=== PATIENT | female | born 2000 | race Caucasian/White ===

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

== ENCOUNTER 2021-01-10 05:52 | Emergency (ER) | payer BC, OTHER ==
[~2021-01-10] VITALS: Ht 167.6 cm; Wt 102.5 kg
[2021-01-10 06:00] VITALS: BP 132/61
[2021-01-10] MEDS ORDERED: CONTRAST GIVEN. MC PRN (06:45)
[2021-01-10 06:54] LABS: BACTERIA,URINE MOD /HPF (0-FEW); BILIRUBIN,URINE NEG (NEG); CLARITY,URINE CLEAR; COLOR,URINE YELLOW; GLUCOSE,URINE NEG (NEG); NITRITE,URINE NEG (NEG); SQUAMOUS EPITHELIAL CELL,UR MANY /LPF; UROBILINOGEN,URINE 0.2 mg/dL (0.2 mg/dL)
[2021-01-10] MEDS ORDERED: IOHEXOL 300 MG/ML 75 ML VIAL. IV ONE (07:00)
[2021-01-10] MEDS ORDERED: KETOROLAC 15 MG/ML VIAL. IVP ONE (07:00)
--- NOTE | 2021-01-10 07:02 | PHYS DOC ---
Past History Past Medical History: No Pertinent History, Depression Past Surgical History: Other Additional Past Surgical Histo: adenoids, tonsils, wisdom teeth Smoking: Non-smoker Alcohol Use: None Drug Use: None General Adult EDM: Chief Complaint: ABDOMINAL PAIN HPI: HPI: Patient is a 89-year-old female coming in for right lower abdominal pain. Patient states that she had some stomach discomfort yesterday before going to bed but woke up at 0100 with "stabbing" intermittent pain in her right lower abdomen. Patient states the pain is worse with movement and pressure. Denies any nausea, vomiting, diarrhea or constipation. Denies any urinary discomfort or hematuria. No abdominal surgical history. Patient has a history significant for PCOS, and had a recent TV ultrasound that showed no cyst. Review of Systems: Review of Systems: Constitutional: Denies fever or chills Eyes: Denies change in visual acuity HENT: Denies nasal congestion or sore throat Respiratory: Denies cough or shortness of breath Cardiovascular: Denies chest pain or edema GI: Denies abdominal pain, nausea, vomiting, bloody stools or diarrhea : Denies dysuria Musculoskeletal: Denies back pain or joint pain Integument: Denies rash Neurologic: Denies headache, focal weakness or sensory changes Endocrine: Denies polyuria or polydipsia Lymphatic: Denies swollen glands Psychiatric: Denies depression or anxiety Current Medications: Current Meds: Current Medications Medications (Trade) Dose Ordered Sig/Denia Start Time Stop Time Status Last Admin Dose Admin Info (Do NOT chart on this entry -- for MONITORING) 1 each PRN DAILY PRN 01/10/21 06:45 01/12/21 06:44 Iohexol (Omnipaque 300 Mg/ml) 75 ml 1X ONCE 01/10/21 07:00 01/10/21 07:01 01/10/21 06:48 75 ML Ketorolac Tromethamine (Toradol 15mg Vial) 15 mg 1X ONCE 01/10/21 07:00 01/10/21 07:01 Allergies: Allergies: Allergies Coded Allergies Type Severity Reaction Last Updated Verified latex Allergy Unknown 11/28/20 Yes Physical Exam: PE: Constitutional: Well developed, well nourished, no acute distress, non-toxic appearance. [] HENT: Normocephalic, atraumatic, bilateral external ears normal, oropharynx moist, no oral exudates, nose normal. [] Eyes: PERRLA, EOMI, conjunctiva normal, no discharge. [] Neck: Normal range of motion, no tenderness, supple, no stridor. [] Cardiovascular:Heart rate regular rhythm, no murmur [] Lungs & Thorax: Bilateral breath sounds clear to auscultation [] Abdomen: Bowel sounds normal, soft, no tenderness, no masses, no pulsatile masses. [] Skin: Warm, dry, no erythema, no rash. [] Back: No tenderness, no CVA tenderness. [] Extremities: No tenderness, no cyanosis, no clubbing, ROM intact, no edema. [] Neurologic: Alert and oriented X 3, normal motor function, normal sensory function, no focal deficits noted. [] Psychologic: Affect normal, judgement normal, mood normal. [] Current Patient Data: Labs: Laboratory Tests Test 01/10/21 06:00 01/10/21 06:26 Urine Collection Type Unknown Urine Color Yellow Urine Clarity Clear Urine pH 6.0 Urine Specific Bradley >=1.030 Urine Protein Neg (NEG-TRACE) Urine Glucose (UA) Neg mg/dL (NEG) Urine Ketones (Stick) Neg mg/dL (NEG) Urine Blood Large (NEG) Urine Nitrite Neg (NEG) Urine Bilirubin Neg (NEG) Urine Urobilinogen Dipstick 0.2 mg/dL (0.2 mg/dL) Urine Leukocyte Esterase Neg (NEG) Urine RBC 11-20 /HPF (0-2) Urine WBC 1-4 /HPF (0-4) Urine Squamous Epithelial Cells Many /LPF Urine Bacteria Mod /HPF (0-FEW) Urine Mucus Mod /LPF POC Urine HCG, Qualitative hcg negative (Negative) EKG: EKG: [] Radiology/Procedures: Radiology/Procedures: [address] [address] IMAGING REPORT Signed PATIENT: SANDRA DODSON LACCOUNT: [id number] : 2000 LOCATION: ER AGE: 20 SEX: F EXAM STATUS: REG ER ORD. PHYSICIAN: EVELYN MCKNIGHT MD REASON: rlq pain PROCEDURE: CT ABD PELV W/ IV CONTRST ONLY Study: CT abdomen/pelvis with intravenous contrast Indication: Right lower quadrant pain. Comparison: 07/16/2017 Technique: Helical CT imaging performed of the abdomen and pelvis after the intravenous administration of contrast. Sagittal and coronal reformats were obtained. One or more of the following individualized dose reduction techniques were utilized for this examination: 1. Automated exposure control 2. Adjustment of the mA and/or kV according to patient size 3. Use of iterative reconstruction technique. Findings: The visualized lungs and mediastinal contents are within normal limits. Unremarkable liver, gallbladder, biliary tree, pancreas spleen and adrenal glands. Symmetric renal parenchymal enhancement. No stone or collecting system dilatation. Unremarkable bladder. The uterus and ovaries are within normal limits. No localized colonic wall thickening or pericolonic inflammation. The appendix is well-visualized and is normal with no periappendiceal inflammation and gas within the lumen. Nonobstructed small bowel. Unremarkable stomach. Normal aortic caliber. Patent major veins. No lymphadenopathy by size criteria. No free fluid or pneumoperitoneum. No acute or aggressive osseous process. Unchanged vertebral body height and alignment with a few Schmorl's nodes. Impression: No acute abnormality identified throughout the abdomen or pelvis. In the setting of reported right lower quadrant pain the appendix is normal. Electronically signed by: GEMA MCCLOUD MD (01/10/2021 7:19 AM) [facility] DICTATED AND SIGNED BY: GEMA MCCLOUD MD DATE: 01/10/21 0711 CC: EVELYN MCKNIGHT MD; TUNG HACKETT ~MTH0 0 [] Heart Score: C/O Chest Pain: No Risk Factors: Risk Factors: DM, Current or recent (<one month) smoker, HTN, HLP, family history of CAD, obesity. Risk Scores: Score 0 - 3: 2.5% MACE over next 6 weeks - Discharge Home Score 4 - 6: 20.3% MACE over next 6 weeks - Admit for Clinical Observation Score 7 - 10: 72.7% MACE over next 6 weeks - Early Invasive Strategies Course & Med Decision Making: Course & Med Decision Making Pertinent Labs and Imaging studies reviewed. (See chart for details) [] Dragon Disclaimer: Dragon Disclaimer: This electronic medical record was generated, in whole or in part, using a voice recognition dictation system. Departure Departure: Impression: Primary Impression: RLQ abdominal pain Disposition: 01 HOME / SELF CARE / HOMELESS Condition: STABLE Referrals: TUNG HACKETT (PCP) Patient Instructions: Abdominal Pain, Possible Early Appendicitis EVELYN MCKNIGHT MD Jan 10, 2021 07:02
--- NOTE | 2021-01-10 07:21 | RAD ---
Study: CT abdomen/pelvis with intravenous contrast Indication: Right lower quadrant pain. Comparison: 07/16/2017 Technique: Helical CT imaging performed of the abdomen and pelvis after the intravenous administratio n of contrast. Sagittal and coronal reformats were obtained. One or more of the following individualized dose reduction techniques were utilized for this examinat ion: 1. Automated exposure control 2. Adjustment of the mA and/or kV according to patient size 3. Use of iterative reconstruction technique. Findings: The visualized lungs and mediastinal contents are within normal limits. Unremarkable liver, gallbladder, biliary tree, pancreas spleen and adrenal glands. Symmetric renal parenchymal enhancement. No stone or collecting system dilatation. Unremarkable bladd er. The uterus and ovaries are within normal limits. No localized colonic wall thickening or pericolonic inflammation. The appendix is well-visualized and is normal with no periappendiceal inflammation and gas within the lumen. Nonobstructed small bowel. Unremarkable stomach. Normal aortic caliber. Patent major veins. No lymphadenopathy by size criteria. No free fluid or pneu moperitoneum. No acute or aggressive osseous process. Unchanged vertebral body height and alignment with a few Schm orl's nodes. Impression: No acute abnormality identified throughout the abdomen or pelvis. In the setting of reported right lo wer quadrant pain the appendix is normal. Electronically signed by: GEMA MCCLOUD MD (01/10/2021 7:19 AM) [facility]
[2021-01-10 07:23] LABS: BASO % 1 % (0-3); EOS # 0.1 x10^3/uL (0.0-0.7); EOS % 2 % (0-3); HEMATOCRIT 35.7 % (36.0-47.0); LYMPH # 1.9 x10^3/uL (1.0-4.8); LYMPH % 35 % (24-48); MEAN CORPUSCULAR HEMOGLOBIN 27 pg (25-35); MEAN CORPUSCULAR HGB CONC 34 g/dL (31-37); MEAN CORPUSCULAR VOLUME 79 fL (79-100); MONO # 0.6 x10^3/uL (0.0-1.1); MONO % 11 % (0-9); NEUT # 2.7 x10^3uL (1.8-7.7); NEUT % 52 % (31-73); PLATELET COUNT 236 x10^3/uL (140-400); RED BLOOD COUNT 4.53 x10^6/uL (3.50-5.40); RED CELL DISTRIBUTION WIDTH 14.5 % (11.5-14.5); WHITE BLOOD COUNT 5.3 x10^3/uL (4.0-11.0)
[2021-01-10 07:25] LABS: CALCIUM 8.2 mg/dL (8.5-10.1); CREATININE 0.6 mg/dL (0.6-1.0); GFR 128.8; POTASSIUM 4.2 mmol/L (3.5-5.1)
[2021-01-10 07:31] LABS: ALBUMIN 3.2 g/dL (3.4-5.0); TOTAL BILIRUBIN 0.2 mg/dL (0.2-1.0); TOTAL PROTEIN 6.3 g/dL (6.4-8.2)
== END 2021-01-10 07:51 | disposition home or self-care (01) ==
LOC: ER 05:52
DX: R10.31 Right lower quadrant pain (principal); Z91.040 Latex allergy status
CPT/HCPCS: 36415; 74177; 80053; 81001; 81025; 83690; 85025; 87086; 96374; 99285; J1885; Q9967

== ENCOUNTER 2021-03-06 11:44 | Emergency (ER) | payer OTHER ==
[~2021-03-06] VITALS: Ht 167.6 cm; Wt 102.5 kg
[2021-03-06 12:06] VITALS: BP 148/95
[2021-03-06] MEDS ORDERED: IV NORMAL SALINE 1,000ML 1,000 ML IV ONE (12:45)
--- NOTE | 2021-03-06 12:51 | PHYS DOC ---
Past History Past Medical History: No Pertinent History, Depression Past Surgical History: Other Additional Past Surgical Histo: adenoids, tonsils, wisdom teeth Smoking: Non-smoker Alcohol Use: None Drug Use: None General Adult EDM: Chief Complaint: VAGINAL BLEEDING HPI: HPI: 20-year-old female presents with vaginal bleeding. The patient started Depo- Provera in December. Her last menstrual cycle was in December. She has been having bleeding for more than a week and it seems like the clots have gotten bigger. Some of them has been as big as a golf ball. She has never had significant cramps or clotting with her menstrual cycle. She denies fever or chills. She has had some mild lightheadedness. Review of Systems: Review of Systems: Constitutional: Denies fever or chills Eyes: Denies change in visual acuity HENT: Denies nasal congestion or sore throat Respiratory: Denies cough or shortness of breath Cardiovascular: Denies chest pain or edema GI: Lower abdominal pain. Denies nausea, vomiting, bloody stools or diarrhea : Vaginal bleeding Musculoskeletal: Denies back pain or joint pain Integument: Denies rash Neurologic: Denies headache, focal weakness or sensory changes Endocrine: Denies polyuria or polydipsia Lymphatic: Denies swollen glands Psychiatric: Denies depression or anxiety Current Medications: Current Meds: Current Medications Medications (Trade) Dose Ordered Sig/Denia Start Time Stop Time Status Last Admin Dose Admin Sodium Chloride 1,000 ml @ 1,000 mls/hr 1X ONCE 03/06/21 12:45 03/06/21 13:44 UNV Allergies: Allergies: Allergies Coded Allergies Type Severity Reaction Last Updated Verified latex Allergy Unknown 11/28/20 Yes Physical Exam: PE: Constitutional: Well developed, well nourished, obese, no acute distress, non- toxic appearance. [] HENT: Normocephalic, atraumatic, bilateral external ears normal, oropharynx moist, no oral exudates, nose normal. [] Eyes: PERRLA, EOMI, conjunctiva normal, no discharge. [] Neck: Normal range of motion, no tenderness, supple, no stridor. [] Cardiovascular: Heart rate regular rhythm, no murmur [] Lungs & Thorax: Bilateral breath sounds clear to auscultation [] Abdomen: Bowel sounds normal, soft, no tenderness, no masses, no pulsatile masses. [] Skin: Warm, dry, no erythema, no rash. [] Back: No tenderness, no CVA tenderness. [] Extremities: No tenderness, no cyanosis, no clubbing, ROM intact, no edema. [] Neurologic: Alert and oriented X 3, normal motor function, normal sensory function, no focal deficits noted. [] Psychologic: Affect normal, judgement normal, mood normal. [] EKG: EKG: [] Radiology/Procedures: Radiology/Procedures: [] Heart Score: C/O Chest Pain: N/A Risk Factors: Risk Factors: DM, Current or recent (<one month) smoker, HTN, HLP, family history of CAD, obesity. Risk Scores: Score 0 - 3: 2.5% MACE over next 6 weeks - Discharge Home Score 4 - 6: 20.3% MACE over next 6 weeks - Admit for Clinical Observation Score 7 - 10: 72.7% MACE over next 6 weeks - Early Invasive Strategies Course & Med Decision Making: Course & Med Decision Making Pertinent Labs and Imaging studies reviewed. (See chart for details) The patient's labs are unremarkable. Her hemoglobin is 11.9. I advised the patient that this is likely due to restarting the control. She does not meet criteria for admission or transfusion. This should resolve on its own. She can follow-up with her primary care physician or [facility] if the bleeding does not stop in the next few days. Urinalysis is negative for infection. She is not . She is stable for discharge at this time. [] Dragon Disclaimer: Mookie Disclaimer: This electronic medical record was generated, in whole or in part, using a voice recognition dictation system. Departure Departure: Impression: Primary Impression: Menorrhagia Qualified Codes: N92.1 - Excessive and frequent menstruation with irregular cycle Disposition: HOME / SELF CARE / HOMELESS Condition: STABLE Referrals: TUNG HACKETT (PCP) Patient Instructions: Menorrhagia, [id number] MERARI HOLMAN DO Mar 06, 2021 12:51
[2021-03-06 13:44] LABS: BASO # 0.1 x10^3/uL (0.0-0.2); BASO % 1 % (0-3); EOS % 0 % (0-3); HEMATOCRIT 33.7 % (36.0-47.0); HEMOGLOBIN 11.2 g/dL (12.0-15.5); LYMPH # 2.3 x10^3/uL (1.0-4.8); LYMPH % 35 % (24-48); MEAN CORPUSCULAR HEMOGLOBIN 26 pg (25-35); MEAN CORPUSCULAR HGB CONC 33 g/dL (31-37); MEAN CORPUSCULAR VOLUME 79 fL (79-100); MONO # 0.5 x10^3/uL (0.0-1.1); MONO % 8 % (0-9); NEUT # 3.6 x10^3uL (1.8-7.7); NEUT % 55 % (31-73); PLATELET COUNT 293 x10^3/uL (140-400); RED BLOOD COUNT 4.28 x10^6/uL (3.50-5.40); RED CELL DISTRIBUTION WIDTH 13.7 % (11.5-14.5); WHITE BLOOD COUNT 6.6 x10^3/uL (4.0-11.0)
[2021-03-06 13:46] LABS: CALCIUM 9.4 mg/dL (8.5-10.1); CREATININE 0.6 mg/dL (0.6-1.0); GFR 128.8; POTASSIUM 4.2 mmol/L (3.5-5.1)
[2021-03-06 13:51] LABS: ALBUMIN/GLOBULIN RATIO 1.1 (1.0-1.7); TOTAL BILIRUBIN 0.2 mg/dL (0.2-1.0); TOTAL PROTEIN 7.5 g/dL (6.4-8.2)
[2021-03-06 14:56] LABS: BACTERIA,URINE 0 /HPF (0-FEW); BILIRUBIN,URINE NEG (NEG); CLARITY,URINE CLOUDY; COLOR,URINE YELLOW; GLUCOSE,URINE NEG (NEG); NITRITE,URINE NEG (NEG); RBC,URINE >40 /HPF (0-2); SQUAMOUS EPITHELIAL CELL,UR FEW /LPF; UROBILINOGEN,URINE 0.2 mg/dL (0.2 mg/dL); WBC,URINE 0 /HPF (0-4)
== END 2021-03-06 15:40 | disposition home or self-care (01) ==
LOC: ER 11:44
DX: N92.1 Excessive and frequent menstruation with irregular cycle (principal); Z91.040 Latex allergy status
CPT/HCPCS: 36415; 80053; 81001; 81025; 85025; 96360; 99283; J7030

== ENCOUNTER → 2021-03-10 | Outpatient (CLI) | payer OTHER ==
[2021-03-06 12:06] VITALS: BP 148/95
--- NOTE | 2021-03-10 17:52 | RAD ---
Study: XR SHOULDER_LEFT 2+ VIEWS Indication: Left shoulder pain. Comparison: None. Findings: Alignment is anatomic. No acute fracture. No significant arthrosis. The partially assessed left-sided ribs are grossly intact. Unremarkable soft tissues. Within normal limits acromiohumeral interval. Impression: No acute fracture or malalignment. Electronically signed by: GEMA MCCLOUD MD (03/10/2021 5:49 PM) [facility]
== END ==
LOC: RAD 17:16
PROVIDERS: ATTEND Nurse Practitioner Family
DX: M25.512 Pain in left shoulder (principal)
CPT/HCPCS: 73030

== ENCOUNTER 2021-04-25 08:06 | Emergency (ER) | payer OTHER ==
[~2021-04-25] VITALS: Ht 167.6 cm; Wt 108.9 kg
[2021-04-25 08:23] VITALS: BP 135/83
--- NOTE | 2021-04-25 08:27 | PHYS DOC ---
Past History Past Medical History: No Pertinent History, Depression Past Surgical History: Other Additional Past Surgical Histo: adenoids, tonsils, wisdom teeth Smoking: Non-smoker Alcohol Use: None Drug Use: None General Adult EDM: Chief Complaint: COUGH HPI: HPI: 21-year-old female presents with single episode of hemoptysis. Patient woke up at 3 AM to go to the restroom. She had a tickle in her throat and started to cough. She coughed up a green massive blood around 1 inch in diameter. She did not have any further bleeding. She has been feeling completely normal. She denies any symptoms of illness. She attempted to go to urgent care but they sent her to the ER. She just wants to make sure there is no significant problem. She denies shortness of breath, chest pain, dizziness. No fever or chills. Review of Systems: Review of Systems: Constitutional: Denies fever or chills Eyes: Denies change in visual acuity HENT: Denies nasal congestion or sore throat Respiratory: Hemoptysis Cardiovascular: Denies chest pain or edema GI: Denies abdominal pain, nausea, vomiting, bloody stools or diarrhea : Denies dysuria Musculoskeletal: Denies back pain or joint pain Integument: Denies rash Neurologic: Denies headache, focal weakness or sensory changes Endocrine: Denies polyuria or polydipsia Lymphatic: Denies swollen glands Psychiatric: Denies depression or anxiety Allergies: Allergies: Allergies Coded Allergies Type Severity Reaction Last Updated Verified latex Allergy Unknown 11/28/20 Yes Physical Exam: PE: Constitutional: Well developed, well nourished, no acute distress, non-toxic appearance. [] HENT: Normocephalic, atraumatic, bilateral external ears normal, oropharynx moist, no oral exudates, nose normal. [] Eyes: PERRLA, EOMI, conjunctiva normal, no discharge. [] Neck: Normal range of motion, no tenderness, supple, no stridor. [] Cardiovascular: Heart rate regular rhythm, no murmur [] Lungs & Thorax: Bilateral breath sounds clear to auscultation [] Abdomen: Bowel sounds normal, soft, no tenderness, no masses, no pulsatile masses. [] Skin: Warm, dry, no erythema, no rash. [] Back: No tenderness, no CVA tenderness. [] Extremities: No tenderness, no cyanosis, no clubbing, ROM intact, no edema. [] Neurologic: Alert and oriented X 3, normal motor function, normal sensory function, no focal deficits noted. [] Psychologic: Affect normal, judgement normal, mood normal. [] EKG: EKG: [] Radiology/Procedures: Radiology/Procedures: [] Impressions: EXAM: Chest, 2 views. HISTORY: Cough. Hemoptysis. COMPARISON: 02/03/2020 FINDINGS: 2 views of the chest are obtained. There is no infiltrate, pleural effusion or pneumothorax. The heart is normal in size. IMPRESSION: No acute pulmonary finding. Electronically signed by: Mere Root MD (04/25/2021 8:49 AM) [id number] DICTATED AND SIGNED BY: MERE ROOT MD DATE: 04/25/21 0848 CC: MERARI HOLMAN DO; TUNG HACKETT ~MTH0 0 Heart Score: C/O Chest Pain: N/A Risk Factors: Risk Factors: DM, Current or recent (<one month) smoker, HTN, HLP, family history of CAD, obesity. Risk Scores: Score 0 - 3: 2.5% MACE over next 6 weeks - Discharge Home Score 4 - 6: 20.3% MACE over next 6 weeks - Admit for Clinical Observation Score 7 - 10: 72.7% MACE over next 6 weeks - Early Invasive Strategies Course & Med Decision Making: Course & Med Decision Making Pertinent Labs and Imaging studies reviewed. (See chart for details) The patient's chest x-ray is negative for acute findings. She has had no further symptoms in the emergency room. This was likely either a nosebleed in the low night or a small esophageal bleed that has resolved. If she has further trouble I have advised that she follow-up with her primary physician or come back to emergency room. She is reassured by these results. She is stable for discharge at this time. [] Dragon Disclaimer: Dragtomas Disclaimer: This electronic medical record was generated, in whole or in part, using a voice recognition dictation system. Departure Departure: Impression: Primary Impression: Hemoptysis Disposition: HOME / SELF CARE / HOMELESS Condition: STABLE Referrals: TUNG HACKETT (PCP) Patient Instructions: Hemoptysis-Brief MERARI HOLMAN DO Apr 25, 2021 08:27
--- NOTE | 2021-04-25 08:51 | RAD ---
EXAM: Chest, 2 views. HISTORY: Cough. Hemoptysis. COMPARISON: 02/03/2020 FINDINGS: 2 views of the chest are obtained. There is no infiltrate, pleural effusion or pneumothorax . The heart is normal in size. IMPRESSION: No acute pulmonary finding. Electronically signed by: Mere Root MD (04/25/2021 8:49 AM) [id number]
== END 2021-04-25 09:20 | disposition home or self-care (01) ==
LOC: ER 08:06
DX: R04.2 Hemoptysis (principal); Z91.040 Latex allergy status
CPT/HCPCS: 71046; 99283

== ENCOUNTER → 2021-09-30 | Outpatient (CLI) | payer OTHER ==
[~2021-09-30] MED LIST changes: -OMEP20TA8 PO; +OMEP20TA91 PO
--- NOTE | 2021-09-30 10:52 | RAD ---
XR LUMBAR SPINE 4+V DATE: 09/30/2021 9:16 AM INDICATION: per pt fell x3 mos ago, still having low back pain. COMPARISON: None. FINDINGS: Hypoplastic 12th ribs. Five non-rib bearing lumbar-type vertebral bodies are present. Bones/Alignment: No evidence of acute compression fracture. There is no listhesis. Joints: There is no disc space loss. Miscellaneous: None. IMPRESSION: Vertebral body heights, alignment, and disc spaces are preserved. Electronically signed by: Jose Holt MD (09/30/2021 10:49 AM) [id number]
== END ==
LOC: RAD 08:52
PROVIDERS: ATTEND Nurse Practitioner Family
DX: M54.40 Lumbago with sciatica, unspecified side (principal)
CPT/HCPCS: 72110